=== PATIENT | male | born 1990 | race Caucasian/White ===

== ENCOUNTER 2019-06-24 13:10 | Outpatient (CLI) | payer MEDICAID ==
[2019-06-24 18:42] LABS: BASOPHILS # (AUTO) 0.1 10^3/uL (0.0-0.1); BASOPHILS % (AUTO) 0.6 %; EOSINOPHILS % (AUTO) 0.3 %; HGB - HEMOGLOBIN 14.6 g/dL (14.0-18.0); LYMPHOCYTES # (AUTO) 2.4 10^3/uL (1.5-3.5); MEAN CORPUSCULAR HEMOGLOBIN 33.6 pg (27.0-31.0); MEAN CORPUSCULAR HGB CONC 33.2 g/dL (32.0-36.0); MEAN CORPUSCULAR VOLUME 101.4 fL (80.0-94.0); MONOCYTES # (AUTO) 0.7 10^3/uL (0.0-1.0); MONOCYTES % (AUTO) 7.3 %; NEUTROPHILS # (AUTO) 5.9 10^3/uL (1.5-6.6); NEUTROPHILS % (AUTO) 65.2 %; PLT - PLATELET COUNT 260 10^3/uL (130-450); RED BLOOD COUNT 4.34 10^6/uL (4.70-6.10); RED CELL DISTRIBUTION WIDTH 12.6 % (12.0-15.0); WHITE BLOOD COUNT 9.1 x10^3/uL (4.8-10.8)
[2019-06-24 19:04] LABS: ALBUMIN 4.2 g/dL (3.2-5.5); ALBUMIN/GLOBULIN RATIO 1.4 (1.0-2.2); BILIRUBIN,TOTAL 0.5 mg/dL (0.2-1.0); CALCIUM 9.8 mg/dL (8.5-10.3); CREATININE 0.8 mg/dL (0.6-1.2); TOTAL PROTEIN 7.2 g/dL (6.7-8.2)
== END 2019-06-24 23:59 | disposition home or self-care (01) ==
LOC: LAB.N 13:10
PROVIDERS: ATTEND Family Medicine
DX: M23.203 Derangement of unspecified medial meniscus due to old tear or injury, right knee (principal); S32.009S Unspecified fracture of unspecified lumbar vertebra, sequela; R63.6 Underweight
CPT/HCPCS: 36415; 80053; 84443; 85025

== ENCOUNTER 2019-07-24 16:30 | Outpatient (CLI) | payer MEDICAID | END 2019-07-24 16:35 | disposition home or self-care (01) | LOC: LAB.R 16:30 | PROVIDERS: ATTEND Family Medicine | DX: R30.0 Dysuria (principal) | CPT/HCPCS: 87086; 87181 ==

== ENCOUNTER 2019-08-14 17:00 | Outpatient (CLI) | payer MEDICAID | END 2019-08-14 23:59 | disposition home or self-care (01) | LOC: LAB.R 17:00 | PROVIDERS: ATTEND Family Medicine | DX: N41.0 Acute prostatitis (principal) | CPT/HCPCS: 87077; 87086; 87181 ==